=== PATIENT | male | born 1990 | race Caucasian/White ===

== ENCOUNTER 2017-02-18 04:01 | Emergency (ER) | payer BC ==
[~2017-02-18] VITALS: Ht 172.7 cm; Wt 82.6 kg
[~2017-02-18 04:01] MED LIST: MOTRIN800 MG PO
[2017-02-18 04:40] VITALS: BP 121/66
== END 2017-02-18 04:34 | disposition home or self-care (01) ==
LOC: EME 04:01
DX: S90.212A Contusion of left great toe with damage to nail, initial encounter (principal); S90.211A Contusion of right great toe with damage to nail, initial encounter; X58.XXXA Exposure to other specified factors, initial encounter; Y99.0 Civilian activity done for income or pay
CPT/HCPCS: 99281; 99283

== ENCOUNTER 2017-05-07 00:01 | Emergency (ER) | payer BC ==
[~2017-05-07] VITALS: Ht 172.7 cm; Wt 77.1 kg
[2017-05-07 02:51] LABS: CHLORIDE 106 mEq/L (99-109); POTASSIUM 4.7 mEq/L (3.7-5.4); SODIUM 140 mEq/L (136-147)
[2017-05-07 02:52] LABS: GLUCOSE 96 mg/dL (70-99)
[2017-05-07 02:56] LABS: CREATININE 0.8 mg/dL (0.6-1.3); GFR ESTIMATE (CALCULATED) > 59 mL/min/ (58.99-99999)
[2017-05-07 02:57] LABS: UREA NITROGEN (BUN) 18 mg/dL (9-23)
[2017-05-07 03:01] LABS: HEMATOCRIT 46.9 % (38.0-50.0); HEMOGLOBIN 15.7 G/DL (12.5-16.6); MCH 28.8 PG (29.0-34.0); MCHC 33.5 G/DL (30.0-36.0); MCV 85.9 FL (86-99); RBC DIS.WIDTH-CV 13.2 % (11.8-14.6); RBC DIS.WIDTH-SD 40.8 % (39-53); RED BLOOD COUNT 5.46 M/uL (4.00-5.50); WHITE BLOOD COUNT 6.3 K/uL (4.1-10.2)
[2017-05-07] MEDS ORDERED: ZOFRAN ODT4 MG PO (03:39)
[2017-05-07 03:40] LABS: PLAT.SUFFICIENCY ADEQUATE; PLATELET COUNT 305 K/uL (156-360)
[2017-05-07 04:09] VITALS: BP 111/88
== END 2017-05-07 04:18 | disposition home or self-care (01) ==
LOC: EME 00:01
PROVIDERS: Emergency Medicine
DX: A08.4 Viral intestinal infection, unspecified (principal)
CPT/HCPCS: 80048; 85027; 99281; 99284; J2405; J7030

== ENCOUNTER 2017-06-10 03:46 | Emergency (ER) | payer BC ==
[~2017-06-10] VITALS: Ht 172.7 cm; Wt 74.7 kg
[~2017-06-10 03:46] MED LIST changes: +ZOFRAN ODT4 MG PO
[2017-06-10 05:07] VITALS: BP 118/74
== END 2017-06-10 05:08 | disposition home or self-care (01) ==
LOC: EME 03:46
DX: S06.0X0A Concussion without loss of consciousness, initial encounter (principal); S60.012A Contusion of left thumb without damage to nail, initial encounter; W22.8XXA Striking against or struck by other objects, initial encounter
CPT/HCPCS: 70450; 73130; 99281; 99284

== ENCOUNTER 2017-10-11 19:48 | Emergency (ER) | payer BC ==
[~2017-10-11] VITALS: Ht 172.7 cm; Wt 73.9 kg
[2017-10-11] MEDS ORDERED: KEFLEX500 MG PO (20:58)
[2017-10-11 21:21] VITALS: BP 114/81
== END 2017-10-11 21:21 | disposition home or self-care (01) ==
LOC: EME 19:48
DX: L60.0 Ingrowing nail (principal); L08.9 Local infection of the skin and subcutaneous tissue, unspecified
CPT/HCPCS: 99281; 99283

== ENCOUNTER 2017-10-20 21:50 | Emergency (ER) | payer BC ==
[~2017-10-20] VITALS: Ht 172.7 cm; Wt 70.9 kg
[~2017-10-20 21:50] MED LIST changes: +KEFLEX500 MG PO
[2017-10-21] MEDS ORDERED: AUGMENTIN875 MG PO (01:22)
[2017-10-21 01:27] VITALS: BP 127/84
== END 2017-10-21 01:27 | disposition home or self-care (01) ==
LOC: EME 21:50
DX: J02.9 Acute pharyngitis, unspecified (principal)
CPT/HCPCS: 87081; 87651 90; 99281; 99284